=== PATIENT | female | born 1945 | race Caucasian/White ===

== ENCOUNTER → 2018-09-10 | Day surgery (SDC) | payer MEDICARE, OTHER ==
[2018-09-06 16:26] LABS: BASOPHILS % 0.7 % (0.0-1.0); EOSINOPHILS # (AUTO) 0.2 (0.0-0.4); EOSINOPHILS % 3.2 % (0.0-6.0); HEMOGLOBIN 10.9 g/dL (12.0-16.0); LYMPHOCYTES # (AUTO) 0.8 (1.0-3.2); LYMPHOCYTES % 14.9 % (18.0-39.1); MEAN CORPUSCULAR HEMOGLOBIN 27.7 pg (28-32); MEAN CORPUSCULAR HGB CONC 32.1 g/dL (31-35); MEAN CORPUSCULAR VOLUME 86.3 fL (81-99); MONOCYTES # (AUTO) 0.8 (0.2-0.8); MONOCYTES % 14.7 % (4.4-11.3); NEUTROPHILS # (AUTO) 3.7 (2.1-6.9); NEUTROPHILS % 66.3 % (38.7-80.0); PLATELET COUNT 216 x10e3/uL (140-360); RED BLOOD COUNT 3.94 x10e6/uL (3.6-5.1); RED CELL DISTRIBUTION WIDTH 14.9 % (11.7-14.4)
[2018-09-06 16:53] LABS: ANION GAP 12.2 mmol/L (8-16); BLOOD UREA NITROGEN 14 mg/dL (7-26); BUN/CREATININE RATIO 21 (6-25); CALCIUM 8.9 mg/dL (8.4-10.2); CARBON DIOXIDE 26 mmol/L (22-29); CHLORIDE 103 mmol/L (98-107); CREATININE, SERUM 0.66 mg/dL (0.57-1.11); EST GLOMERULAR FILTRATION RATE > 60 ML/MIN (60-); GLUCOSE 143 mg/dL (74-118); POTASSIUM 4.2 mmol/L (3.5-5.1); SODIUM 137 mmol/L (136-145)
--- NOTE | 2018-09-07 08:13 | Diagnostic Imaging Report ---
EXAMINATION: PA and lateral views of the chest. COMPARISON: Portable chest 08/12/2017 CLINICAL HISTORY: Preop exam DISCUSSION: Exam limited by patient rotation. Lines/tubes: None. Lungs: The lungs are well inflated and grossly clear. There is no evidence of consolidation or pulmonary edema. Pleura: There is no pleural effusion or pneumothorax. Eventration of the left hemidiaphragm. Heart and mediastinum: Cardiomediastinal silhouette is unremarkable. Pulmonary vasculature is normal. Bones and soft tissues: No acute bony abnormalities. Generalized osteopenia, with vertebroplasty changes in multiple mid and lower thoracic vertebral bodies IMPRESSION: No acute cardiopulmonary abnormalities. Signed by: Dr. Darren Gilliam M.D. on 09/07/2018 8:10 AM
[~2018-09-10] MED LIST: A-C CARBAMIDE PO; ABILIFY2 MG PO; ADVIL PM CAPLE1 EACH PO; ALENDRONATE SOD10 MG PO; BACLOFEN10 MG PO; BENZONATATE100 MG PO; BRINTELLIX PO; BUSPIRONE HCL10 MG PO; CARBAMAZEPINE200 M2 PO; CARBAMAZEPINE200 MG PO; CATAPLEX B PO; CITALOPRAM HBR20 MG PO; DEXAMETHASONE SOD PHOS INJ 4 MG/ML VIAL ONE; DEXILANT30 MG PO; DICYCLOMINE HCL10 MG PO; DOXYCYCLINE HY100 MG PO; EPHEDRINE SULFATE INJ 50 MG/10 ML SYR ONE; FENTANYL CITRATE/PF 100MCG/2 ML INJ ONE; FLUCONAZOLE100 MG PO; FUROSEMIDE40 MG PO; GABAPENTIN300 MG PO; HYDROCODONE-AP1 EAC1 PO; HYDROXYZINE HCL25 MG PO; IRON PO; KETOROLAC TROMETHAMINE 30 MG/ML VIAL ONE; LASIX40 MG PO; LIDOCAINE HCL 2% LOCAL INJ 5 ML SDV VIAL INJ ONE; LINEZOLID 600 MG/D5W 300ML 300 ML IV ONE; LORAZEPAM0.5 MG PO; LUNESTA3 MG PO; LYRICA50 MG PO; LYRICA75 MG PO; MAGNESIUM OXID400 MG PO; MAGNESIUM100 MG PO; MIDAZOLAM HCL 2 MG/2 ML VIAL ONE; MIDODRINE HCL5 MG PO; MULTI-VITAMIN1 EACH PO; NABUMETONE500 MG PO; NORCO 10-325 T1 EACH PO; ONDANSETRON HCL INJ 2 MG/ML VIAL ONE; POTASSIUM CHLO10 ME1 PO; POTASSIUM CHLO20 ME1 PO; PROPOFOL IV EMULSION 10 MG/ML 20 ML VIAL ONE; ROPINIROLE HCL1 MG PO; ROPINIROLE HCL2 MG PO; SEVOFLURANE INHAL SOLN 250 ML PEN BTL ONE; SIMVASTATIN40 MG PO; TEMAZEPAM15 MG PO; TERBINAFINE HC250 MG PO; TRAMADOL100 MG PO; ULTRAM 50MG50 MG PO; VIT B12 PO; Z.0.CYMBALTA60 MG PO; Z.0.SIMVASTATIN20 MG PO; Z.0.SINGULAIR10 MG PO; Z.1.CARBAMAZEPINE200 PO; [UNRECOGNIZED DRUG - OTHER]; [UNRECOGNIZED DRUG - OTHER]; [UNRECOGNIZED DRUG - OTHER] PO; [UNRECOGNIZED DRUG - OTHER] PO; [UNRECOGNIZED DRUG - OTHER] PO
--- OUTSIDE RECORDS SUMMARY | 2018-09-10 07:26 | XMS REPORT ---
Author Author Valerie Jarrell [facility] eClinicalWorks Address Unknown Phone Unavailable Care Team Providers Care Security Auditor Name Role Phone Valerie Jarrell CP Unavailable Allergies No Known Allergies Problems Problem Type Condition Code Onset Dates Condition Status Problem Osteoporosis, senile M81.0 Active Problem Gastritis and duodenitis K29.90 Active Problem Vitamin D deficiency E55.9 Active Medications No Known Medications Results No Known Results Summary Purpose eClinicalWorks Submission
--- OUTSIDE RECORDS SUMMARY | 2018-09-10 07:26 | XMS REPORT ---
Author Author Valerie Jarrell [facility] [place] eClinicalWorks Address Unknown Phone Unavailable Care Team Providers Care Aluminum Siding Applicator Name Role Phone Valerie Jarrell CP Unavailable Allergies No Known Allergies Problems Problem Type Condition Code Onset Dates Condition Status Problem Osteoporosis, senile M81.0 Active Problem Gastritis and duodenitis K29.90 Active Problem Vitamin D deficiency E55.9 Active Medications No Known Medications Results No Known Results Summary Purpose eClinicalWorks Submission
--- OUTSIDE RECORDS SUMMARY | 2018-09-10 07:26 | XMS REPORT ---
Author Author Valerie Jarrell Organization eClinicalWorks Address Unknown Phone Unavailable Care Team Providers Care Dermatological Surgeon Name Role Phone Valerie Jarrell CP Unavailable Allergies No Known Allergies Problems Problem Type Condition Code Onset Dates Condition Status Problem Gastritis and duodenitis K29.90 Active Problem Osteoporosis, senile M81.0 Active Medications Medication Code System Code Instructions Start Date End Date Status Dosage Ergocalciferol [facility] [id number] UNIT Orally q week Jul 17, 2018 Nov 14, 2018 Active 1 capsule Results No Known Results Summary Purpose eClinicalWorks Submission
--- OUTSIDE RECORDS SUMMARY | 2018-09-10 07:26 | XMS REPORT ---
Author Author Valerie Jarrell [facility] [place] eClinicalWorks Address Unknown Phone Unavailable Care Team Providers Care Optical Instrument Repairer Name Role Phone Valerie Jarrell CP Unavailable Allergies No Known Allergies Problems Problem Type Condition Code Onset Dates Condition Status Problem Osteoporosis, senile M81.0 Active Problem Gastritis and duodenitis K29.90 Active Problem Vitamin D deficiency E55.9 Active Medications No Known Medications Results No Known Results Summary Purpose eClinicalWorks Submission
--- OUTSIDE RECORDS SUMMARY | 2018-09-10 07:26 | XMS REPORT ---
Author Author Valerie Jarrell [facility] eClinicalWorks Address Unknown Phone Unavailable Care Team Providers Care Manager Family Name Role Phone Marisollaurel Valerie CP Unavailable Allergies, Adverse Reactions, Alerts Substance Reaction Event Type Cnephlosporin Info Not Available Non Drug Allergy Vancomycex Info Not Available Non Drug Allergy Clidymiacin Info Not Available Non Drug Allergy Aspirin Info Not Available Non Drug Allergy Penicillan Info Not Available Non Drug Allergy Problems Problem Type Condition Code Onset Dates Condition Status Problem Gastritis and duodenitis K29.90 Active Assessment Osteoporosis, senile M81.0 Active Problem Osteoporosis, senile M81.0 Active Assessment Pain in right hand M79.641 Active Assessment Gastritis and duodenitis K29.90 Active Assessment Pain of left hand M79.642 Active Medications Medication Code System Code Instructions Start Date End Date Status Dosage Womens Multivitamin [facility] 04651367994 - Orally Active not defined Gabapentin ND 31463878410 300 MG Orally Once a day Active 1 capsule before bedtime Imodium A-D [facility] 38787566121 2 MG Orally Four times a day Active 1 tablet as needed Potassium Chloride [facility] 68933227946 20 MEQ Orally Once a day Active 1 packet with food Magnesium [facility] 80726728645 300 MG Orally Once a day Active 1 capsule with a meal Sucralfate [facility] 50552384924 1 GM/10ML Orally Twice a day Active 10 ml at bedtime on an empty stomach before meals Benadryl ND 0 Active not defined HydrOXYzine HCl [facility] 09550483829 25 MG/ML Intramuscular every 6 hrs Active 2 ml as needed Ropinirole HCl ND 75209304883 2 MG Orally Once a day Active 1 tablet 1 to 3 hours before bedtime Carbamazepine ND 31915406028 100 MG Orally Twice a day Active 2 tablets Prolia [facility] 38376148050 60 MG/ML Subcutaneous once every 6 months Jul 03, 2018 Active as directed Bumetanide ND 08814329195 1 MG Orally Active not defined Doxycycline Hyclate [facility] 80207410911 100 MG Intravenous Active not defined Bell [address] [facility] 85808108074 1000 MG Orally Once a day Active 1 capsule Citalopram Hydrobromide [facility] 61875415633 20 MG Orally Once a day Active 1 tablet Vital Signs Date/Time: Jul 03, 2018 Height 57 in Blood Pressure Diastolic 72 mm Hg Blood Pressure Systolic 119 mm Hg Weight w/c lbs Results No Known Results Summary Purpose eClinicalWorks Submission
--- OUTSIDE RECORDS SUMMARY | 2018-09-10 07:26 | XMS REPORT ---
Author Author [facility] Address Unknown Phone Unavailable Care Team Providers Care Interface Designer Name Role Phone MERY JOVEL Unavailable Unavailable GABY QUINTANILLA Unavailable Unavailable Ernie STERLING Unavailable Unavailable Problems This patient has no known problems. Allergies, Adverse Reactions, Alerts This patient has no known allergies or adverse reactions. Medications This patient has no known medications. Results Test Description Test Time Test Comments Text Results Atomic Results Result Comments CHEST 2 VIEWS 2018-09-07 08:00:00 [place] [address] Patient Name: VENKATA DONOVAN MR #: [id number] : 1945 Age/Sex: 72/F Req #: [id number] Adm Physician: Ordered by: MERY JOVEL MD Report #: [id number] Location: OR Room/Bed: Procedure: [id number] DX/CHEST 2 VIEWS Exam Date: 09/06/18 Exam Time: 1650 REPORT STATUS: Signed EXAMINATION: PA and lateral views of the chest. COMP ARISON: Portable chest 08/12/2017 CLINICAL HISTORY: Preop exam DISCUSSION: Exam limited by patient rotation. Lines/tubes: None. Lungs: The lungs are well inflated and grossly clear. There is no evidence of consolidation or pulmonary edema. Pleura: There is no pleural effusion or pneumothorax. Eventration of the left hemidiaphragm. Heart and mediastinum: Cardiomediastinal silhouette is unremarkable. Pulmonary vasculature is normal. Bones and soft tissues: No acute bony abnormalities. Generalized osteopenia, with vertebroplasty changes in multip le mid and lower thoracic vertebral bodies IMPRESSION: No acute cardiopulmonary abnormalities. Signed by: Dr. Cali Gilliam M.D. on 09/07/2018 8:10 AM Dictated By: CALI GILLIAM MD 9 Transcribed By: ROGERIO on 09/07/18809 COPY TO: MERY JOVEL MD RIBS UNILAT W/CXR [place] [address] Patient Name: VENKATA DONOVAN MR #: [id number] : 1945 Age/Sex: 71/F Req #: [id number] Adm Physician: GABY QUINTANILLA MD Ordered by: GABY QUINTANILLA MD Report #: [id number] Location: MED/SURG2 Room/Bed: [facility] Procedure: [id number] DX/RIBS UNILAT W/CXR Exam Date: 08/13/17 Exam Time: 0615 REPORT STATUS: Signed RIBS UNILAT W/CXR HISTORY: Left-sided rib pain COMPARISON: None FINDINGS: Bones: Focal deformity at the lateral aspect of the left fifth rib without definite cortical disruption. Multilevel vertebroplasty noted along the mid thoracic spine. Anterior cervical spine fusion present. Osseous alignment is within normal limits. Joints: The joint spaces are well-maintained. Soft tissues: The soft tissues appear unremarkable. Right upper extremity PICC line is visualized with tip at the atriocaval junction The lungs are clear. IMPRESSION: Left lateral fifth rib deformity may represent subacute fracture in the appropriate clinical setting. Signed by: Dr. Armando Hoffman M.D. on 08/13/2017 6:57 AM Dictated By: ARMANDO SOUSA MD 6 Transcribed By: ROGERIO on 08/13/17656 COPY TO: GABY QUINTANILLA MD CHEST XRAY LINE PLACEMENT [place] [address] Patient Name: VENKATA DONOVAN MR #: [id number] : 1945 Age/Sex: 71/F Req #: [id number] Adm Physician: GABY QUINTANILLA MD Ordered by: ERICKA DIAZ MD Report #: [id number] Location: [place] [address] Room/Bed: [facility] Procedure: [id number] DX/CHEST XRAY LINE PLACEMENT Exam Date: 08/12/17 Exam Time: 1140 REPORT STATUS: Signed EXAMINATION: Chest, CHEST XRAY LINE PLACEMENT INDICATION: PICC placement COMPARISON: Portable chest 08/09/2017. FINDINGS: LINES: Right peripherally inserted central venous catheter with tip projecting over the expected region of the superior vena cava. Heart: Normal cardiac silhouette. Vascular: The pulmonary vasculature is within normal limits. Atherosclerotic calcifications of the aortic arch. Mediastinum: No mediastinal, hilar, or axillary mass or lymphadenopathy. Lungs: No parenchymal mass. No focal consolidation. Pleura: No pleural effusion. No pneumothorax. Bones: No acute osseous abnormality. Degenerative changes of the thoracic spine. Anterior cervical spine fusion hardware. Multilevel kyphoplasty changes. So ft tissues: Normal. Impression: No acute radiographic abnormality. Signed by: Dr. Lea Cabrera M.D. on 08/12/2017 12:03 PM Dictated By: LEA CABRERA MD 1203 Transcribed By: ROGERIO on 08/12/17 1203 COPY TO: ERICKA DIAZ MD CHEST SINGLE (NOT PORTABLE) [place] [address] Patient Name: VENKATA DONOVAN MR #: [id number] : 1945 Age/Sex: 71/F Req #: [id number] Adm Physician: Ordered by: TUYET RAI MD Report #: [id number] Location: ER Room/Bed: Procedure: [id number] DX/CHEST SINGLE (NOT PORTABLE) Exam Date: 08/09/17 Exam Time: 1615 REPORT STATUS: Signed PROCEDURE: A single AP view of the chest. COMPARISON: [facility], DX, CHEST XRAY LINE PLACEMENT, 05/02/2017, 12:13. INDICATIONS: CELLULITIS FINDINGS: Lines/tubes: None. Lungs: The lungs are well inflated and clear. There is no evidence of pneumonia or pulmonary edema. Pleura: There is no pleural effusion or pneumothorax. Heart and mediastinum: The heart and the mediastinum are unremarkable. Bones: No acute bony abnormality. Multiple vertebroplasty changes in the thoracic spine. Stable partly visualized lower thoracic fusion hardware. Degenerative changes in the left glenohumeral joint. IMPRESSION: 1. No acute cardiopulmonary abnormalities. Cali Gilliam M.D. Dictated by: Cali Gilliam M.D. on 08/09/2017 at 17:14 Electronically approved by: Cali Gilliam M.D. on 08/09/2017 at 17:14 Dictated By: CALI GILLIAM MD 13 Transcribed By: ROSS on 08/09/171713 COPY TO: TUYET RAI MD CTA ABD/PEL/RUN OFF [facility] [address] [place] [address] Patient Name: VENKATA DONOVAN MR #: [id number] : 1945 Age/Sex: 71/F Req #: [id number] Adm Physician: Ordered by: SVETLANA STERLING MD Report #: [id number] Location: CT Room/Bed: Procedure: [id number] CT/CTA ABD/PEL/RUN OFF Exam Date: 06/28/17 Exam Time: 1944 REPORT STATUS: Signed PROCEDURE: CTA ABD/PEL/BILATERAL LOWER EXT RUNOFF COMPARISON: None. INDICATIONS: ABNORMAL DOPPLER TECHNIQUE: Multi- detector CT technology with Dose Reduction was employed. Images were obtained after the administration of 100 cc of Isovue-370 intravenously. For optimization of anatomic evaluation, multiplanar and volume rendering reconstructions were performed. Advanced 3-D off-line postprocessing were performed on a dedicated stand-alone workstation under the direct supervision of the interpreting physician. DLP: 995.16 mGy-cm FINDINGS: Aortic Measurements at the level of the: Diaphragmatic hiatus: 2.3 cm Celiac axis: 2.1 cm Superior Mesenteric Artery: 1.7 cm Renal Arteries: 1.4 cm Above the iliac bifurcation: 1.2 cm There is a moderate amount of calcified plaque throughout the abdominal aorta. There is no aortic aneurysm or dissection. The celiac, superior mesenteric, inferior mesenteric and renal arteries are patent with scattered atherosclerotic disease, without significant narrowing. Calcification at the ostia of the celiac and bilateral renal arteries. Pelvic vessels: Right common iliac artery: 1.0 cm Left common iliac artery: 1.0 cm The bilateral common, external and internal iliac arteries are patent with mild atherosclerotic disease. No significant areas of narrowing. Right lower extremity: Mild athe rosclerotic calcification. No focal stenosis. The superficial femoral artery, popliteal artery and trifurcation vessels are patent. There are 3 vessels extending to the foot. Dorsalis pedis and posterior tibial arteries are present the foot. Left lower extremity: Occluded left SFA with profunda collaterals. Patient is status post edhbw-ici-gcqe amputation on the left. Abdominal and Pelvic soft-tissues and organs: Lung bases: Normal Liver: No masses Biliary: Status post cholecystectomy. No biliary dilatation. Spleen: Unremarkable Pancreas: Unremarkable Adrenal Glands: No nodules or masses Kidneys: Within normal limits GI: No bowel wall thickening. Peritoneum/Retroperitoneum: No free fluid or adenopathy. Reproductive organs: Atrophic appearing uterus. Musculoskeletal: Vertebroplasty cement and T9. Compression abnormalities of L4 and L2. Multilevel degenerative disc space narrowing. Small right knee joint effusion. Chronic fracture fracture deformity of the left femoral neck. Fractures are new compared to the prior CTA dated 2013. Soft tissues: Multiple calcified injection granulomas. Small fat-containing umbilical hernia. CONCLUSION: 1. No significant stenosis in the right lower extremity; status post left aftey-frt-nbkp amputation. 2. There is a three-vessel calf runoff with dorsalis pedis and posterior tibial patent at the foot. 3. Compression fractures of the lumbar spine.. Nahed Orta D.O. Dictated by: Nahed Orta D.O. on 06/29/2017 at 10:42 Electronically approved by: Nahed Orta D.O. on 06/29/2017 at 12:14 Dictated By: NAHED ORTA DO 1214 Transcribed By: ROSS on 06/29/17 1214 COPY TO: SVETLANA STERLING MD
--- OUTSIDE RECORDS SUMMARY | 2018-09-10 07:26 | XMS REPORT | Clinical Summary ---
Author Author [facility] Address Unknown Phone Unavailable Care Team Providers Care Summer Law Clerk Name Role Phone Asked, No Pcp PCP Unavailable Allergies Active Allergy Reactions Severity Noted Date Comments Aspirin Shortness Of Breath, Rash High 02/07/2017 Clindamycin Rash Low 02/07/2017 Penicillins Rash Low 02/07/2017 Sulfa (Sulfonamide Rash Low 02/07/2017 Antibiotics) Vancomycin Rash Low 02/07/2017 Current Medications Prescription Sig. Disp. Refills Start End Date Status Date traMADol (ULTRAM) 50 mg Take 50 mg by mouth every Active tablet 6 (six) hours as needed. baclofen (LIORESAL) 10 MG Take 10 mg by mouth every Active tablet evening. furosemide (LASIX) 40 mg Take 80 mg by mouth every Active tablet morning. busPIRone (BUSPAR) 10 MG Take 10 mg by mouth 2 Active tablet (two) times a day. LORAZepam (ATIVAN) 0.5 MG Take 0.5 mg by mouth Active tablet every 6 (six) hours as needed for anxiety. rOPINIRole (REQUIP) 2 MG Take 4 mg by mouth 2 Active tablet (two) times a day. carBAMazepine (TEGretol) Take 200 mg by mouth 2 Active 200 mg tablet (two) times a day. HYDROcodone-acetaminophen Take 1 tablet by mouth Active (NORCO) 10-325 mg per nightly. tablet HYDROcodone-acetaminophen Take 1 tablet by mouth Active (NORCO) 10-325 mg per daily as needed for tablet moderate pain. pantoprazole (PROTONIX) Take 40 mg by mouth Active 40 MG EC tablet nightly. fluticasone-salmeterol Inhale 2 puffs as needed Active (ADVAIR) 500-50 mcg/dose (shortness of breath). DISKUS cholecalciferol, vitamin Take 5,000 Units by mouth Active D3, (VITAMIN D3) 5,000 daily. unit tablet gabapentin (NEURONTIN) Take 600 mg by mouth Active 600 mg tablet daily. magnesium oxide 84.5 mg Take 2 capsules by mouth Active (140 mg) capsule daily. UNABLE TO FIND Take 1 tablet by mouth Active daily. Procera AVH coenzyme Q10 100 mg Take 100 mg by mouth Active capsule daily. melatonin 5 mg tablet Take 5 mg by mouth Active nightly as needed (insomnia). ASCORBATE CALCIUM Take 1 tablet by mouth Active (VITAMIN C ORAL) daily. diphenhydrAMINE Take 12.5 mg by mouth Active (BENADRYL) 12.5 mg/5 mL nightly as needed for liquid sleep. Active Problems Problem Noted Date Closed fracture of base of neck of femur (HCC) 02/08/2017 Closed fracture of neck of left femur (HCC) 02/07/2017 Immunizations Name Dates Previously Given Next Due Tdap 02/07/2017 Social History Tobacco Use Types Packs/Day Years Used Date Former Smoker Quit: 2014 Alcohol Use Drinks/Week oz/Week Comments No Sex Assigned at Date Recorded Not on file Last Filed Vital Signs Not on file Plan of Treatment Health Maintenance Due Date Last Done Comments BREAST CANCER SCREENING 1997 COLON CANCER SCREENING 1997 SHINGRIX VACCINE (#1) 1997 ZOSTER VACCINE 2007 PNEUMOCOCCAL 2012 POLYSACCHARIDE VACCINE AGE 65 AND OVER PNEUMOCOCCAL-13 2012 INFLUENZA VACCINE 06/12/2018 Results Not on fileafter 09/09/2017 Insurance Payer Benefit Subscriber ID Type Phone Address Plan / Group MEDICARE MEDICARE xxxxxxxxxx Medicare [place], [place] PART A AND B COMMERCIAL MISC MISC xxxxxx-xx Commercial COMMERCIAL
--- OUTSIDE RECORDS SUMMARY | 2018-09-10 07:26 | XMS REPORT ---
Author Author Valerie Jarrell [facility] eClinicalWorks Address Unknown Phone Unavailable Care Team Providers Care Business Area Manager Name Role Phone Marisollaurel Valerie CP Unavailable Allergies, Adverse Reactions, Alerts Substance Reaction Event Type Cnephlosporin Info Not Available Non Drug Allergy Vancomycex Info Not Available Non Drug Allergy Clidymiacin Info Not Available Non Drug Allergy Aspirin Info Not Available Non Drug Allergy Penicillan Info Not Available Non Drug Allergy Problems Problem Type Condition Code Onset Dates Condition Status Assessment Vitamin D deficiency E55.9 Active Problem Osteoporosis, senile M81.0 Active Problem Gastritis and duodenitis K29.90 Active Problem Vitamin D deficiency E55.9 Active Assessment Pain of left hand M79.642 Active Assessment Pain in right hand M79.641 Active Assessment Osteoporosis, senile M81.0 Active Assessment Gastritis and duodenitis K29.90 Active Medications Medication Code System Code Instructions Start Date End Date Status Dosage Carbamazepine [facility] 25209277975 100 MG Orally Twice a day Active 2 tablets Ropinirole HCl [facility] 10864804848 2 MG Orally Once a day Active 1 tablet 1 to 3 hours before bedtime [place] 3 [facility] 93615305189 1000 MG Orally Once a day Active 1 capsule HydrOXYzine HCl [facility] 56136969773 25 MG/ML Intramuscular every 6 hrs Active 2 ml as needed Prolia [facility] 05615074250 60 MG/ML Subcutaneous once every 6 months Active as directed Sucralfate [facility] 73709442623 1 GM/10ML Orally Twice a day Active 10 ml at bedtime on an empty stomach before meals Potassium Chloride [facility] 35000760443 20 MEQ Orally Once a day Active 1 packet with food Ergocalciferol [facility] 66016379929 16186 UNIT Orally q week Jul 17, 2018 Nov 14, 2018 Active 1 capsule Doxycycline Hyclate [facility] 61433479285 100 MG Intravenous Active not defined Bumetanide ND 54049121955 1 MG Orally Active not defined Imodium A-D ND 56809704711 2 MG Orally Four times a day Active 1 tablet as needed Ergocalciferol [facility] 06877048680 71052 UNIT Orally once weekly Jul 30, 2018 Nov 27, 2018 Active 1 capsule Etodolac [facility] 78055387852 400 MG Orally Twice a day Jul 30, 2018 Nov 27, 2018 Active 1 tab(s) with food as needed Magnesium [facility] 62594369720 300 MG Orally Once a day Active 1 capsule with a meal Womens Multivitamin [facility] 32985417938 - Orally Active not defined Citalopram Hydrobromide [facility] 12971815146 20 MG Orally Once a day Active 1 tablet Gabapentin [facility] 53851586387 300 MG Orally Once a day Active 1 capsule before bedtime Benadryl [facility] 0 Active not defined Vital Signs Date/Time: Jul 30, 2018 Height 57 in Blood Pressure Diastolic 51 mm Hg Blood Pressure Systolic 103 mm Hg Weight 135 lbs Results No Known Results Summary Purpose eClinicalWorks Submission
--- OUTSIDE RECORDS SUMMARY | 2018-09-10 07:26 | XMS REPORT ---
Author Author Valerie Jarrell [facility] eClinicalWorks Address Unknown Phone Unavailable Care Team Providers Care Html Developer Name Role Phone Valerie Jarrell CP Unavailable Allergies No Known Allergies Problems Problem Type Condition Code Onset Dates Condition Status Problem Osteoporosis, senile M81.0 Active Problem Gastritis and duodenitis K29.90 Active Problem Vitamin D deficiency E55.9 Active Medications No Known Medications Results No Known Results Summary Purpose eClinicalWorks Submission
--- OUTSIDE RECORDS SUMMARY | 2018-09-10 07:26 | XMS REPORT ---
Author Author Valerie Jarrell Organization eClinicalWorks Address Unknown Phone Unavailable Care Team Providers Care Concrete Conveyor Operator Name Role Phone Valerie Jarrell CP Unavailable Allergies No Known Allergies Problems Problem Type Condition Code Onset Dates Condition Status Problem Osteoporosis, senile M81.0 Active Problem Gastritis and duodenitis K29.90 Active Problem Vitamin D deficiency E55.9 Active Assessment Pain of left hand M79.642 Active Medications Medication Code System Code Instructions Start Date End Date Status Dosage Etodolac [facility] 22631481779 400 MG Orally Twice a day Jul 30, 2018 Nov 27, 2018 Inactive 1 tab(s) with food as needed Naproxen NDC 47462332752 500 MG Orally every 12 hrs Aug 06, 2018 Nov 04, 2018 Active 1 tab(s) with food as needed Results No Known Results Summary Purpose eClinicalWorks Submission
--- OUTSIDE RECORDS SUMMARY | 2018-09-10 07:26 | XMS REPORT | Continuity of Care Document ---
Author Author [facility] Interface Address Unknown Phone Unavailable Problems Problem Status Onset Date Classification Date Reported Comments Source Osteoporosis, senile Active Problem 08/28/2018 Valerie Najam Gastritis and duodenitis Active Problem 08/28/2018 Valerie Najam Vitamin D deficiency Active Problem 08/28/2018 Valerie Najam Pain of left hand Active Diagnosis 08/07/2018 Valerie Najam Pain in right hand Active Diagnosis 07/31/2018 Valerie Najam Medications Medication Details Route Status Patient Instructions Ordering Provider Order Date Source Naproxen 1 tab(s) with food as needed Orally Active 500 MG Orally every 12 hrs Najam 08/06/2018 Valerie Najam Etodolac 1 tab(s) with food as needed Orally Active 400 MG Orally Twice a day Najam 07/30/2018 Valerie Najam Ergocalciferol 1 capsule Orally Active 58712 UNIT Orally once weekly Najam 07/30/2018 Valerie Najam Ergocalciferol 1 capsule Orally Active 89706 UNIT Orally q week Naja 07/17/2018 Valerie Najam Prolia as directed Subcutaneous Active 60 MG/ML Subcutaneous once every 6 months Naja 07/03/2018 Valerie Najam Womens Multivitamin not defined Orally Active - Orally Najam Valerie Najam Gabapentin 1 capsule before bedtime Orally Active 300 MG Orally Once a day Najam Valerie Najam Imodium A-D 1 tablet as needed Orally Active 2 MG Orally Four times a day Najam Valerie Najam Potassium Chloride 1 packet with food Orally Active 20 MEQ Orally Once a day Najam Valerie Najam Magnesium 1 capsule with a meal Orally Active 300 MG Orally Once a day Najam Valerie Najam Sucralfate 10 ml at bedtime on an empty stomach before meals Orally Active 1 GM/10ML Orally Twice a day Najam Valerie Najam Benadryl not defined NA Active Najam Valerie Najam HydrOXYzine HCl 2 ml as needed Intramuscular Active 25 MG/ML Intramuscular every 6 hrs Wesly Jarrell Ropinirole HCl 1 tablet 1 to 3 hours before bedtime Orally Active 2 MG Orally Once a day Wesly Jarrell Carbamazepine 2 tablets Orally Active 100 MG Orally Twice a day Naluisa Jarrell Bumetanide not defined Orally Active 1 MG Orally Wesly Jarrell Doxycycline Hyclate not defined Intravenous Active 100 MG Intravenous Naluisa Jarrell Fleming 3 1 capsule Orally Active 1000 MG Orally Once a day Naluisa Padilla Naluisa Citalopram Hydrobromide 1 tablet Orally Active 20 MG Orally Once a day Wesly Padilla Naluisa Prolia as directed Subcutaneous Active 60 MG/ML Subcutaneous once every 6 months Wesly Jarrell Allergies, Adverse Reactions, Alerts Substance Category Reaction Severity Reaction type Status Date Reported Comments Source Cnephlosporin Adverse Reaction Info Not Available Adverse Reaction Active 07/30/2018 Valerie Naluisa Vancomycex Adverse Reaction Info Not Available Adverse Reaction Active 07/30/2018 Valerie Naluisa Clidymiacin Adverse Reaction Info Not Available Adverse Reaction Active 07/30/2018 Valerie Nafernm Aspirin Adverse Reaction Info Not Available Adverse Reaction Active 07/30/2018 Valerie Naluisa Penicillan Adverse Reaction Info Not Available Adverse Reaction Active 07/30/2018 Valerie Najam Immunizations Immunization Date Given Site Status Last Updated Comments Source Results Order Name Results Value Reference Range Date Interpretation Comments Source Vital Signs Vital Sign Value Date Comments Source Height 57 07/30/2018 Valerie Najam Diastolic (mm Hg) 51 07/30/2018 Valerie Najam Systolic (mm Hg) 103 07/30/2018 Valerie Najam Weight 135 07/30/2018 Valerie Najam Height 57 07/03/2018 Valerie Najam Diastolic (mm Hg) 72 07/03/2018 Valerie Najam Systolic (mm Hg) 119 07/03/2018 Valerie Najam Encounters Location Location Details Encounter Type Encounter Number Reason For Visit Attending Provider ADM Date DC Date Status Source Procedures Procedure Code Date Perfomer Comments Source
[2018-09-10 09:45] VITALS: BP 98/41
--- NOTE | 2018-09-10 09:52 | Operative Report ---
DATE OF PROCEDURE: September 10, 2018 MARKETING CLERK: Shaheen Montiel PA-C The patient was brought to the operating room for induction of anesthesia. Throughout this case, my PA's assistance was necessary for retraction of soft tissue and positioning of the extremity. This allows for efficient and technically successful execution of the operation and is considered medically necessary. PREOPERATIVE DIAGNOSIS: Left carpal tunnel syndrome. POSTOPERATIVE DIAGNOSIS: Left carpal tunnel syndrome. PROCEDURE: Left endoscopic carpal tunnel release. INDICATIONS: The patient is a 72-year-old lady who has clinic signs and symptoms consistent with severe left carpal tunnel syndrome. She has failed conservative management and would like to proceed with surgical release. The risks and benefits of an endoscopic versus open carpal tunnel release have been explained. She states she understands and wishes to proceed. PROCEDURE: The patient was brought to the operating room. She was placed under general anesthetic. Prophylactic antibiotics were given in the holding area. The upper extremity was prepped and draped in a sterile manner. A well-padded tourniquet was placed on the upper arm and inflated to 250 mmHg. An operative time out was performed. A 1-cm incision was made over the flexion crease of the wrist. The palmaris longus was retracted to the radial side of the wound. The flexor retinaculum was elevated and incised with a pair of sharp tenotomy scissors. An elevator was used to tease the tenosynovium off the undersurface of the transverse carpal ligament. Dilators were placed, and the hook of the hamate was palpated. The MicroAire endoscope was then placed into the carpal tunnel. The undersurface of the ligament was cleanly visualized without evidence of soft tissue interposition. The knife was deployed, and the ligament was cut from distal to proximal. Full-thickness cut was noted. The proximal retinaculum was then incised under direct visualization using a pair of blunt Metzenbaum scissors. The wound was irrigated and closed with 2 interrupted 4-0 nylon stitches. A sterile bandage was applied, and the patient was extubated. The patient was transferred to the recovery room in stable condition. Blood loss was less than 5 mL, and at the end of the procedure needle and sponge counts were correct. Job#: [id number] MUKESH
== END | disposition home or self-care (01) ==
LOC: OR 07:06
PROVIDERS: ATTEND Specialist
DX: G56.02 Carpal tunnel syndrome, left upper limb (principal); G25.81 Restless legs syndrome; G47.33 Obstructive sleep apnea (adult) (pediatric); E78.5 Hyperlipidemia, unspecified; I73.9 Peripheral vascular disease, unspecified; Z88.6 Allergy status to analgesic agent; Z88.1 Allergy status to other antibiotic agents; Z88.0 Allergy status to penicillin; Z88.2 Allergy status to sulfonamides; Z87.440 Personal history of urinary (tract) infections; Z01.810 Encounter for preprocedural cardiovascular examination; Z01.812 Encounter for preprocedural laboratory examination; Z01.811 Encounter for preprocedural respiratory examination
CPT/HCPCS: 29848; 36415; 71046; 80048; 85025; 93005; J1100; J1885; J2001; J2020; J2250; J2405; J2704

== ENCOUNTER → 2019-04-22 | Day surgery (SDC) | payer MEDICARE, OTHER ==
[2019-04-21 17:03] LABS: BASOPHILS % 0.6 % (0.0-1.0); EOSINOPHILS # (AUTO) 0.2 (0.0-0.4); EOSINOPHILS % 2.7 % (0.0-6.0); HEMATOCRIT 34.3 % (34.2-44.1); HEMOGLOBIN 11.2 g/dL (12.0-16.0); LYMPHOCYTES # (AUTO) 1.3 (1.0-3.2); LYMPHOCYTES % 20.3 % (18.0-39.1); MEAN CORPUSCULAR HEMOGLOBIN 29.7 pg (28-32); MEAN CORPUSCULAR HGB CONC 32.7 g/dL (31-35); MONOCYTES # (AUTO) 0.6 (0.2-0.8); NEUTROPHILS # (AUTO) 4.2 (2.1-6.9); NEUTROPHILS % 67.2 % (38.7-80.0); PLATELET COUNT 216 x10e3/uL (140-360); RED BLOOD COUNT 3.77 x10e6/uL (3.6-5.1); RED CELL DISTRIBUTION WIDTH 13.3 % (11.7-14.4)
[2019-04-21 17:22] LABS: ANION GAP 11.5 mmol/L (8-16); BLOOD UREA NITROGEN 15 mg/dL (7-26); BUN/CREATININE RATIO 20 (6-25); CALCIUM 9.6 mg/dL (8.4-10.2); CARBON DIOXIDE 30 mmol/L (22-29); CHLORIDE 101 mmol/L (98-107); CREATININE, SERUM 0.75 mg/dL (0.57-1.11); EST GLOMERULAR FILTRATION RATE > 60 ML/MIN (60-); GLUCOSE 83 mg/dL (74-118); POTASSIUM 4.5 mmol/L (3.5-5.1); SODIUM 138 mmol/L (136-145)
[~2019-04-22] MED LIST changes: +CLOTRIMAZOLE-BE15 GM TOP; +EFFEXOR XR 3737.5 MG PO; -EPHEDRINE SULFATE INJ 50 MG/10 ML SYR ONE; +ETODOLAC400 M1 PO; -FENTANYL CITRATE/PF 100MCG/2 ML INJ ONE; +LEVOFLOXACIN 500MG/D5W 100ML 100 ML IV ONE; -LINEZOLID 600 MG/D5W 300ML 300 ML IV ONE; -MIDAZOLAM HCL 2 MG/2 ML VIAL ONE; +NYSTOP60 GM TOP; -ONDANSETRON HCL INJ 2 MG/ML VIAL ONE; +ONDANSETRON HCL INJ 2MG/ML 2ML 2 MG/ML VIAL ONE
--- OUTSIDE RECORDS SUMMARY | 2019-04-22 07:32 | XMS REPORT | Continuity of Care Document ---
Author Author [facility] Interface Address Unknown Phone Unavailable Problems Problem Status Onset Date Classification Date Reported Comments Source Osteoporosis, senile Active Problem 03/19/2019 Valerie Najam Gastritis and duodenitis Active Problem 03/19/2019 Valerie Najam Vitamin D deficiency Active Diagnosis 03/19/2019 Valerie Najam Pain of left hand Active Diagnosis 03/19/2019 Valerie Najam Pain in right hand Active Diagnosis 03/19/2019 Valerie Najam Medications Medication Details Route Status Patient Instructions Ordering Provider Order Date Source Etodolac 1 tab(s) with food as needed Orally Active 400 MG Orally Twice a day Naja 02/27/2019 Valerie Najam Ergocalciferol 1 capsule Orally Active 28742 UNIT Orally once weekly Naja 02/27/2019 Valerie Najam Prolia as directed Subcutaneous Active 60 MG/ML Subcutaneous once every 6 months Naja 02/25/2019 Valerie Najam Naproxen 1 tab(s) with food as needed Orally Active 500 MG Orally every 12 hrs Naja 08/06/2018 Valerie Najam Ergocalciferol 1 capsule Orally Active 59804 UNIT Orally once weekly Naja 07/30/2018 Valerie Najam Etodolac 1 tab(s) with food as needed Orally Active 400 MG Orally Twice a day Naja 07/30/2018 Valerie Najam Ergocalciferol 1 capsule Orally Active 84152 UNIT Orally q week Naja 07/17/2018 Valerie Najam Prolia as directed Subcutaneous Active 60 MG/ML Subcutaneous once every 6 months Naja 07/03/2018 Valerie Najam Carbamazepine 2 tablets Orally Active 100 MG Orally Twice a day Najam Valerie Najam Ropinirole HCl 1 tablet 1 to 3 hours before bedtime Orally Active 2 MG Orally Once a day Najam Valerie Najam [place] 3 1 capsule Orally Active 1000 MG Orally Once a day Najam Valerie Najam HydrOXYzine HCl 2 ml as needed Intramuscular Active 25 MG/ML Intramuscular every 6 hrs Najam Valerie Najam Prolia as directed Subcutaneous Active 60 MG/ML Subcutaneous once every 6 months Najam Valerie Najam Sucralfate 10 ml at bedtime on an empty stomach before meals Orally Active 1 GM/10ML Orally Twice a day Najam Valerie Najam Potassium Chloride 1 packet with food Orally Active 20 MEQ Orally Once a day Najam Valerie Najam Doxycycline Hyclate not defined Intravenous Active 100 MG Intravenous Najam Valerie Najam Bumetanide not defined Orally Active 1 MG Orally Najam Valerie Najam Imodium A-D 1 tablet as needed Orally Active 2 MG Orally Four times a day Najam Valerie Najam Magnesium 1 capsule with a meal Orally Active 300 MG Orally Once a day Najam Valerie Najam Womens Multivitamin not defined Orally Active - Orally Najam Valerie Najam Citalopram Hydrobromide 1 tablet Orally Active 20 MG Orally Once a day Najam Valerie Najam Gabapentin 1 capsule before bedtime Orally Active 300 MG Orally Once a day Najam Valerie Najam Benadryl not defined NA Active Najam Valerie Najam Furosemide 1 tablet Orally Active 40 MG Orally Once a day Najam Valerie Najam Gabapentin 1 cap(s) Orally Active 400 MG Orally Three times a day Najam Valerie Najam Etodolac 1 tab(s) with food as needed Orally Active 400 MG Orally Twice a day Najam Valerie Najam Ergocalciferol 1 capsule Orally Active 54493 UNIT Orally once weekly Najam Valerie Najam Triamcinolone Acetonide 1 application to affected area Externally Active 0.1 % Externally Twice a day Najam Valerie Najam Allergies, Adverse Reactions, Alerts Substance Category Reaction Severity Reaction type Status Date Reported Comments Source Cnephlosporin Adverse Reaction Info Not Available Adverse Reaction Active 02/25/2019 Valerie Najam Vancomycex Adverse Reaction Info Not Available Adverse Reaction Active 02/25/2019 Valerie Najam Clidymiacin Adverse Reaction Info Not Available Adverse Reaction Active 02/25/2019 Valerie Najam Aspirin Adverse Reaction Info Not Available Adverse Reaction Active 02/25/2019 Valerie Najam Penicillan Adverse Reaction Info Not Available Adverse Reaction Active 02/25/2019 Valerie Najam sulfa Adverse Reaction Info Not Available Adverse Reaction Active 02/25/2019 Valerie Najam Immunizations Immunization Date Given Site Status Last Updated Comments Source Results Order Name Results Value Reference Range Date Interpretation Comments Source Vital Signs Vital Sign Value Date Comments Source Height 57 02/25/2019 Valerie Najam Diastolic (mm Hg) 60 02/25/2019 Valerie Najam Systolic (mm Hg) 126 02/25/2019 Valerie Najam Weight 163.6 02/25/2019 Valerie Najam Height 57 10/30/2018 Valerie Najam Diastolic (mm Hg) 54 10/30/2018 Valerie Najam Systolic (mm Hg) 113 10/30/2018 Valerie Najam Weight 151.8 10/30/2018 Valerie Najam Height 57 07/30/2018 Valerie Najam Diastolic (mm [...]
--- OUTSIDE RECORDS SUMMARY | 2019-04-22 07:32 | XMS REPORT ---
Author Author [facility] Address Unknown Phone Unavailable Care Team Providers Care Observation Assistant Name Role Phone MERY JOVEL Unavailable Unavailable GABY QUINTANILLA Unavailable Unavailable Ernie STERLING Unavailable Unavailable Problems This patient has no known problems. Allergies, Adverse Reactions, Alerts This patient has no known allergies or adverse reactions. Medications This patient has no known medications. Results Test Description Test Time Test Comments Text Results Atomic Results Result Comments CHEST 2 VIEWS 2018-09-07 08:00:[address] [address] Patient Name: VENKATA DONOVAN MR #: [id number] : 1945 Age/Sex: 72/F Req #: [id number] Adm Physician: Ordered by: MERY JOVEL MD Report #: [id number] Location: OR Room/Bed: Procedure: [id number] DX/CHEST 2 VIEWS Exam Date: 09/06/18 Exam [...] TO: MERY JOVEL MD RIBS UNILAT W/CXR [place] [address] Patient Name: VENKATA DONOVAN MR #: [id number] : 1945 Age/Sex: 71/F Req #: [id number] Adm Physician: GABY QUINTANILLA MD Ordered by: GABY QUINTANILLA MD Report #: [id number] Location: MED/SURG2 Room/Bed: [facility] Procedure: [id number] DX/RIBS UNILAT W/CXR Exam Date: 08/13/17 Exam [...] on 08/13/2017 6:57 AM Dictated By: ARMANDO SUOSA MD 6 Transcribed By: ROGERIO on 08/13/17656 COPY TO: GABY QUINTANILLA MD CHEST XRAY LINE PLACEMENT [place] [address] Patient Name: VENKATA DONOVAN MR #: [id number] : 1945 Age/Sex: 71/F Req #: [id number] Adm Physician: GABY QUINTANILLA MD Ordered by: ERICKA DIAZ MD Report #: [id number] Location: [place] [address] Room/Bed: [facility] Procedure: [id number] DX/CHEST XRAY LINE PLACEMENT Exam Date: 08/12/17 [...] ERICKA DIAZ MD CHEST SINGLE (NOT PORTABLE) [place] [address] Patient Name: VENKATA DONOVAN MR #: [id number] : 1945 Age/Sex: 71/F Req #: [id number] Adm Physician: Ordered by: TUYET RAI MD Report #: [id number] Location: ER Room/Bed: Procedure: [id number] DX/CHEST SINGLE (NOT PORTABLE) Exam Date: 08/09/17 Exam Time: 1615 REPORT STATUS: Signed PROCEDURE: A single AP view of the chest. COMPARISON: [facility], DX, CHEST XRAY LINE PLACEMENT, 05/02/2017, [...] TO: TUYET RAI MD CTA ABD/PEL/RUN OFF [facility] [address] [place] [address] Patient Name: VENKATA DONOVAN MR #: [id number] : 1945 Age/Sex: 71/F Req #: [id number] Adm Physician: Ordered by: SVETLANA STERLING MD Report #: [id number] Location: CT Room/Bed: Procedure: [id number] CT/CTA ABD/PEL/RUN OFF Exam Date: 06/28/17 Exam [...] with profunda collaterals. 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 Abdominal and Pelvic [...] the right lower extremity; status post left [id number] amputation. 2. There is a three-vessel calf [...]
--- OUTSIDE RECORDS SUMMARY | 2019-04-22 07:32 | XMS REPORT ---
Author Author Valerie Jarrell Organization [employer] Address Unknown Phone Unavailable Care Team Providers Care Field Test Engineer Name Role Phone Maddyluisa Valerie CP Unavailable Allergies, Adverse Reactions, Alerts Substance Reaction Event Type sulfa Info Not Available Non Drug Allergy Cnephlosporin Info Not Available Non Drug Allergy Vancomycex Info Not Available Non Drug Allergy Clidymiacin Info Not Available Non Drug Allergy Aspirin Info Not Available Non Drug Allergy Penicillan Info Not Available Non Drug Allergy Problems Problem Type Condition Code Onset Dates Condition Status Assessment Pain in right hand M79.641 Active Assessment Vitamin D deficiency E55.9 Active Problem Osteoporosis, senile M81.0 Active Problem Gastritis and duodenitis K29.90 Active Problem Vitamin D deficiency E55.9 Active Assessment Gastritis and duodenitis K29.90 Active Assessment Pain of left hand M79.642 Active Assessment Osteoporosis, senile M81.0 Active Medications Medication Code System Code Instructions Start Date End Date Status Dosage Ergocalciferol [facility] 38281763749 17292 UNIT Orally once weekly February 27, 2019 Active 1 capsule Furosemide ND 69356638795 40 MG Orally Once a day Active 1 tablet Imodium A-D ND 07724417196 2 MG Orally Four times a day Active 1 tablet as needed Prolia [facility] 46723952564 60 MG/ML Subcutaneous once every 6 months February 25, 2019 Inactive as directed Etodolac [facility] 24836615424 400 MG Orally Twice a day Active 1 tab(s) with food as needed Ergocalciferol [facility] 56560365019 85466 UNIT Orally once weekly Active 1 capsule Citalopram Hydrobromide ND 83737187558 20 MG Orally Once a day Active 1 tablet Potassium Chloride ND 99860191905 20 MEQ Orally Once a day Active 1 packet with food Benadryl NDC 0 Active not defined Magnesium ND 48471782596 300 MG Orally Once a day Active 1 capsule with a meal HydrOXYzine HCl ND 50666130479 25 MG/ML Intramuscular every 6 hrs Active 2 ml as needed Womens Multivitamin [facility] 30044946459 - Orally Active not defined Ropinirole HCl [facility] 21041874242 2 MG Orally Once a day Active 1 tablet 1 to 3 hours before bedtime Gabapentin [facility] 08646490692 400 MG Orally Three times a day Active 1 cap(s) Carbamazepine [facility] 33117026658 100 MG Orally Twice a day Active 2 tablets Triamcinolone Acetonide [facility] 79149392804 0.1 % Externally Twice a day Active 1 application to affected area Vital Signs Date/Time: February 25, 2019 Height 57 in Blood Pressure Diastolic 60 mm Hg Blood Pressure Systolic 126 mm Hg Weight 163.6 lbs Results No Known Results Summary Purpose [employer] Submission
--- OUTSIDE RECORDS SUMMARY | 2019-04-22 07:32 | XMS REPORT | Clinical Summary ---
Author Author [facility] Organization [facility] Address Unknown Phone Unavailable Care Team Providers Care [employer] Psychologist Name Role Phone Haritha Newton MD PCP Allergies Comments Active Allergy Reactions Severity Noted Date Aspirin Shortness Of High 02/07/2017 Breath, Rash Rash starts on thighs and back Cefepime Rash Low 01/15/2019 Cephalosporins Rash Low 01/15/2019 Clindamycin Rash Low 02/07/2017 Penicillins Rash Low 02/07/2017 Sulfa (Sulfonamide Rash Low 02/07/2017 Antibiotics) Vancomycin Rash Low 02/07/2017 Medications End Date Status Medication Sig Dispensed Refills Start Date Active furosemide (LASIX) 40 mg Take 80 mg by 0 tablet mouth every morning. Active carBAMazepine (TEGretol) Take 200 mg 0 200 mg tablet by mouth daily. 200 mg 1 tablet daily Active cholecalciferol, vitamin Take 5,000 0 D3, (VITAMIN D3) 5,000 Units by unit tablet mouth daily. Active gabapentin (NEURONTIN) Take 400 mg 0 600 mg tablet by mouth 3 (three) times a day. 400 mg 2 tablets 3 times a day Active magnesium oxide 84.5 mg Take 2 0 (140 mg) capsule capsules by mouth daily. Active coenzyme Q10 100 mg Take 100 mg 0 capsule by mouth daily. Active diphenhydrAMINE Take 12.5 mg 0 (BENADRYL) 12.5 mg/5 mL by mouth liquid nightly as needed for sleep. Active citalopram (CeleXA) 40 MG Take 40 mg by 0 tablet mouth daily. 9 40 mg 1 tablet daily Active potassium chloride Take 10 mEq 0 (K-DUR,KLOR-CON) 10 MEQ by mouth 9 CR tablet daily. 20 meq ER 1 tablet daily Active ergocalciferol (VITAMIN Take 50,000 0 D2) 50,000 unit capsule Units by mouth once a week. Active etodolac (LODINE) 400 MG TK 1 T PO BID 3 tablet WF PRN 9 Active rOPINIRole (REQUIP) 2 MG ropinirole 2 0 tablet mg tablet 03/05/2019 Discontinued traMADol (ULTRAM) 50 mg Take 50 mg by 0 tablet mouth every 6 (six) hours as needed for moderate pain. 03/05/2019 Discontinued baclofen (LIORESAL) 10 MG Take 10 mg by 0 tablet mouth every evening. 03/05/2019 Discontinued busPIRone (BUSPAR) 10 MG Take 10 mg by 0 tablet mouth 2 (two) times a day. 03/05/2019 Discontinued LORAZepam (ATIVAN) 0.5 MG Take 0.5 mg 0 tablet by mouth every 6 (six) hours as needed for anxiety. 01/20/2019 Discontinued rOPINIRole (REQUIP) 2 MG Take 2 mg by 0 tablet mouth 4 9 (four) times a day. 2 mg 1 tablet 4 times a daily 03/05/2019 Discontinued HYDROcodone-acetaminophen Take 1 tablet 0 (NORCO) 10-325 mg per by mouth tablet nightly. 03/05/2019 Discontinued HYDROcodone-acetaminophen Take 1 tablet 0 (NORCO) 10-325 mg per by mouth tablet daily as needed for moderate pain. 03/05/2019 Discontinued pantoprazole (PROTONIX) Take 40 mg by 0 40 MG EC tablet mouth nightly. 01/20/2019 Discontinued fluticasone-salmeterol Inhale 2 0 (ADVAIR) 500-50 mcg/dose puffs as DISKUS needed (shortness of breath). 03/05/2019 Discontinued UNABLE TO FIND Take 1 tablet 0 by mouth daily. Procera AVH 03/05/2019 Discontinued melatonin 5 mg tablet Take 5 mg by 0 mouth nightly 9 as needed (insomnia). 03/05/2019 Discontinued ASCORBATE CALCIUM Take 1 tablet 0 (VITAMIN C ORAL) by mouth daily. 01/20/2019 Discontinued etodolac (LODINE) 300 MG Take 400 mg 0 capsule by mouth 2 (two) times a day. 40 mg 1 tablet twice daily 03/05/2019 Discontinued BUMETanide (BUMEX) 1 MG Take 1 mg by 0 tablet mouth daily. 9 02/19/2019 midodrine (PROAMATINE) 5 Take 1 tablet 60 tablet 0 MG tablet (5 mg total) 9 by mouth 2 (two) times a day for 30 days. 01/23/2019 linezolid (ZYVOX) 600 mg Take 1 tablet 6 tablet 0 tablet (600 mg 9 total) by mouth 2 (two) times a day for 3 days. 02/19/2019 rOPINIRole (REQUIP) 2 MG Take 1 tablet 90 tablet 0 tablet (2 mg total) 9 by mouth 3 (three) times a day for 30 days. 2 mg 1 tablet 4 times a daily 02/19/2019 fluticasone-salmeterol Inhale 1 puff 1 each 0 (ADVAIR) 500-50 mcg/dose as needed 9 DISKUS (shortness of breath) for up to 30 days. Active Problems Problem Noted Date Cellulitis of left leg 01/16/2019 Cellulitis and abscess of lower extremity 01/15/2019 Closed fracture of base of neck of femur 02/08/2017 Closed fracture of neck of left femur 02/07/2017 Encounters Care Team Description Date Type Specialty Beatrice Muniz MA Swelling of lower leg (Primary Dx); Chronic venous hypertension (idiopathic) with ulcer of right lower extremity (CODE) (HCC) 04/16/2019 Orders Only Cardiovascular Haritha Newton MD Shortness of breath (Primary Dx); Pain in thoracic spine 04/09/2019 Transcribe Access Orders Haritha Newton MD Asymptomatic menopausal state (Primary Dx) 03/31/2019 Transcribe Access Orders Beatrice Muniz MA 03/06/2019 Telephone Cardiovascular Mannie Hudson MD 03/05/2019 Office Visit Cardiovascular Jelly Snyder MD 03/05/2019 Documentation Cardiovascular Latrell Barbosa MD Chronic congestive splenomegaly (Primary Dx) 03/03/2019 Transcribe Access Orders Latrell Barbosa MD Lipoma of right thigh (Primary Dx); Chronic congestive splenomegaly 02/26/2019 Transcribe Access Orders Latrell Barbosa MD Cyst of buttocks (Primary Dx); Cellulitis of right buttock; Abnormal finding on ultrasound 02/24/2019 Transcribe Access Orders Latrell Barbosa MD Abdominal hernia without obstruction and without gangrene, recurrence not specified, unspecified hernia type (Primary Dx) 02/07/2019 Transcribe Orders Latrell Barbosa MD Cellulitis of skin with lymphangitis (Primary Dx); Cellulitis of skin 01/31/2019 Transcribe Access Orders Myrna Saldivar RN 01/23/2019 Telephone Cardiovascular Ines Bowers RN 01/20/2019 Patient Quality Outreach Latrell Barbosa MD Cellulitis and abscess of lower extremity (Primary Dx); Cellulitis of left leg 01/15/2019 [facility] General Surgery - Encounter 01/20/2019 Haritha Newton MD Ventral hernia without obstruction or gangrene (Primary Dx) 01/08/2019 Transcribe Access Orders Haritha Newton MD Ventral hernia without obstruction or gangrene (Primary Dx) 01/02/2019 Transcribe Access Orders after 04/21/2018 Immunizations Name Dates Previously Given Next Due Tdap 02/07/2017 Family History Medical History Relation Name Comments Circulation Problems with Father Legs Heart disease Father Aneurysm Mother Varicose Veins Mother Relation Name Status Comments Father Mother Social History Date Tobacco Use Types Packs/Day Years Used Quit: 2014 Former Smoker Smokeless Tobacco: Never Used Alcohol Use Drinks/Week oz/Week Comments No Sex Assigned at Date Recorded Female 03/07/2019 10:44 AM CDT Industry Job Start Date Occupation Not on file Not on file Not on file Travel End Travel History Travel Start No recent travel history available. Last Filed Vital Signs Time Taken Vital Sign Reading 03/05/2019 10:39 AM CDT Blood Pressure 139/90 03/05/2019 10:39 AM CDT Pulse 67 01/20/2019 11:06 AM CDT Temperature 36.2 C (97.1 F) 03/05/2019 10:39 AM CDT Respiratory Rate 12 03/05/2019 10:39 AM CDT Oxygen Saturation 98% - Inhaled Oxygen - Concentration 03/06/2019 5:00 PM CDT Weight 77.1 kg (170 lb) 03/06/2019 5:00 PM CDT Height 144.8 cm (4' 9") 03/06/2019 5:00 PM CDT Body Mass Index 36.79 Plan of Treatment Care Team Description Date Type Specialty Mannie Hudson MD [address] [facility], [address] [place], [place] [address] 04/29/2019 Office Visit Wound Care Bala Pitt MD [address] [facility] [facility] [address] [place] [address] [phone] Hal French MD [address] [facility] [address] [place] [address] [phone] 04/29/2019 Office Visit Gastroenterology Mannie Hudson MD [address] [facility], [address] [place] [address] [phone] 05/06/2019 Appointment Procedural Cardiology Health Maintenance Due Date Last Done Comments BREAST CANCER SCREENING 1997 COLONOSCOPY SCREENING 1997 SHINGLES VACCINES (#1) 1997 65+ PNEUMOCOCCAL VACCINE 2012 (1 of 2 - PCV13) INFLUENZA VACCINE 06/12/2019 Procedures Comments Procedure Name Priority Date/Time Associated Diagnosis BONE DENSITY Routine 04/09/2019 Asymptomatic menopausal 1:45 PM CDT state XR THORACIC SPINE 2 VW Routine 04/09/2019 Pain in thoracic spine 12:50 PM CDT XR CHEST 2 VW Routine 04/09/2019 Shortness of breath 12:49 PM CDT US HEPATIC Routine 03/28/2019 Chronic congestive 9:[address] LOWER EXTREMITY WO Routine 03/07/2019 Lipoma of right thigh CONTRAST RIGHT 1:42 PM CDT Chronic congestive splenomegaly US LIMITED Routine 02/07/2019 Cellulitis of skin 3:57 PM CDT ESTIMATED GFR Routine 01/19/2019 12:44 PM CDT MAGNESIUM LEVEL Routine 01/19/2019 12:44 PM CDT HC COMPLETE BLD COUNT Routine 01/19/2019 W/AUTO DIFF 12:44 PM CDT BASIC METABOLIC PANEL Routine 01/19/2019 12:44 PM CDT B NATRIURETIC PEPTIDE Routine 01/19/2019 12:44 PM CDT GRAM STAIN Routine 01/16/2019 10:34 PM [employer] OPERATOR URINE CULTURE Routine 01/16/2019 10:34 PM [employer] OPERATOR URINALYSIS SCREEN AND Routine 01/16/2019 MICROSCOPY, WITH REFLEX 10:18 PM [employer] OPERATOR TO CULTURE LACTIC ACID LEVEL Routine 01/16/2019 8:33 PM [employer] OPERATOR ECHOCARDIOGRAM 2D Routine 01/16/2019 COMPLETE W MMODE SPECTRAL 3:54 PM [employer] OPERATOR COLOR DOPPLER ([id number]) B NATRIURETIC PEPTIDE Routine 01/16/2019 3:46 PM [employer] OPERATOR B NATRIURETIC PEPTIDE Routine 01/15/2019 10:14 PM [employer] OPERATOR ESTIMATED GFR Routine 01/15/2019 10:14 PM [employer] OPERATOR PARTIAL THROMBOPLASTIN Routine 01/15/2019 TIME (PTT) 10:14 PM [employer] OPERATOR PROTHROMBIN TIME WITH INR Routine 01/15/2019 10:14 PM T[employer]ING [employer] OPERATOR BASIC METABOLIC PANEL Routine 01/15/2019 10:14 PM [employer] OPERATOR HC COMPLETE BLD COUNT Routine 01/15/2019 W/AUTO DIFF 10:14 PM T[employer] OPERATOR BLOOD CULTURE, AEROBIC & Routine 01/15/2019 ANAEROBIC 9:14 PM [employer] OPERATOR BLOOD CULTURE, AEROBIC & Routine 01/15/2019 ANAEROBIC 9:14 [address] [address] ABDOMEN PELVIS WO Routine 01/08/2019 Ventral hernia without CONTRAST 9:25 AM T[employer] OPERATOR obstruction or gangrene after 04/21/2018 Results * Bone Density (04/09/2019 1:45 PM CDT) Specimen Narrative Performed At EXAMINATION:BONE DENSITY HM [facility] CLINICAL HISTORY:Z78.0 Asymptomatic menopausal state, Z78.0 ASYMPTOMATIC POSTMENOPAUSAL.Osteoporosis screening. COMPARISON:None. The results of this study expressed as bone mineral density (BMD) were as follows: AP spine (L1- L4) BMD: 0.876g/cm2 T-Score: -2.6 Percent Change:not applicable Right Femur (Total Mean): BMD: 0.643g/cm2 T-Score: -2.9 Percent Change:not applicable Impression: Osteoporosis lumbar spine and right femur [id number] A copy of this scans including a report detailing these results will follow. Note: The world health organization (WHO) has classified the patient's T-score as follows: At or above (-1) as normal Between (-1) to (-2.5) as low (osteopenia) Below (-2.5) as abnormally low (osteoporosis, increased fracture risk) Dual femur FRAX: Risk factors: History of fracture adult 10 year probability of fracture: 1.Major osteoporotic: 29.7 % 2.Hip:10.7 % 3.Based on dual femur rightneck BMD Procedure Note Interface, Radiology Results Incoming - 04/09/2019 2:06 PM CDT EXAMINATION: BONE DENSITY CLINICAL HISTORY: Z78.0 Asymptomatic menopausal state, Z78.0 ASYMPTOMATIC POSTMENOPAUSAL. Osteoporosis screening. COMPARISON: None. The results of this study expressed as bone mineral density (BMD) were as follows: AP spine (L1- L4) BMD: 0.876 g/cm2 T-Score: -2.6 Percent Change: not applicable Right Femur (Total Mean): BMD: 0.643 g/cm2 T-Score: -2.9 Percent Change: not applicable Impression: Osteoporosis lumbar spine and right femur [id number] A copy of this scans including a report detailing these results will follow. Note: The world health organization (WHO) has classified the patient's T-score as follows: At or above (-1) as normal Between (-1) to (-2.5) as low (osteopenia) Below (-2.5) as abnormally low (osteoporosis, increased fracture risk) Dual femur FRAX: Risk factors: History of fracture adult 10 year probability of fracture: 1. Major osteoporotic: 29.7 % 2. Hip:10.7 % 3. Based on dual femur right neck BMD Performing Organization Address [facility] Phone Number [facility] [address] [place] [address] * XR Thoracic Spine 2 Vw (04/09/2019 12:50 PM CDT) Specimen Narrative Performed At EXAMINATION: XR THORACIC SPINE 2 VW RAD[facility] CLINICAL HISTORY: M54.6 Pain in thoracic spine, m54.6 COMPARISON:None IMPRESSION: Status post multiple levels of cement augmentation of the midthoracic spine with increased focal kyphosis at these levels. Decreased bone mineral density limits evaluation for new displaced fracture superior to this region. There is mild levoscoliosis of the thoracic spine. If there is high clinical concern for new fracture, CT or MRI could be performed for further assessment. ACDF of the lower cervical spine is been performed. [id number] Procedure Note Interface, Radiology Results Incoming - 04/09/2019 4:10 PM CDT EXAMINATION: XR THORACIC SPINE 2 VW CLINICAL HISTORY: M54.6 Pain in thoracic spine, m54.6 COMPARISON: None IMPRESSION: Status post multiple levels of cement augmentation of the midthoracic spine with increased focal kyphosis at these levels. Decreased bone mineral density limits evaluation for new displaced fracture superior to this region. There is mild levoscoliosis of the thoracic spine. If there is high clinical concern for new fracture, CT or MRI could be performed for further assessment. ACDF of the lower cervical spine is been performed. [id number] Performing Organization Address [facility] Phone Number [facility] [address] [place] [address] * XR Chest 2 Vw (04/09/2019 12:49 PM CDT) Specimen Narrative Performed At EXAMINATION:XR CHEST 2 VW RAD[facility] CLINICAL HISTORY:R06.02 Shortness of breath, r06.02 COMPARISON:February 11, 2017 IMPRESSION: Lines: None Lungs and pleura: No consolidations. No pleural effusion or pneumothorax. Heart and mediastinum: Stable appearance of cardiomediastinal silhouette. Bones: No suspicious osseous lesions. Compression fractures and vertebral augmentation changes of multiple thoracic vertebral bodies. ACDF. Left rotator cuff calcific tendinitis. Exaggerated kyphosis. Bones are severely demineralized. [id number] Procedure Note Interface, Radiology Results Incoming - 04/09/2019 1:36 PM CDT EXAMINATION: XR CHEST 2 VW CLINICAL HISTORY: R06.02 Shortness of breath, r06.02 COMPARISON: February 11, 2017 IMPRESSION: Lines: None Lungs and pleura: No consolidations. No pleural effusion or pneumothorax. Heart and mediastinum: Stable appearance of cardiomediastinal silhouette. Bones: No suspicious osseous lesions. Compression fractures and vertebral augmentation changes of multiple thoracic vertebral bodies. ACDF. Left rotator cuff calcific tendinitis. Exaggerated kyphosis. Bones are severely demineralized. [id number] Performing Organization Address [facility] Phone Number [facility] [address] [place] [address] * US Hepatic (03/28/2019 9:03 AM CDT) Specimen Narrative Performed At EXAMINATION:US HEPATIC RADI[facility] CLINICAL HISTORY:D73.2 Chronic congestive splenomegaly, d73.2 d17.23 COMPARISON:None. IMPRESSION: The liver is normal in appearance. Patient is status post cholecystectomy. Common bile duct is dilated to 1.7 cm. This is greater than that expected for postcholecystectomy status. MRCP could better evaluate if desired. Main portal vein is 11 mm. Flow in the main portal vein is patent and hepatopedal. [id number] Procedure Note Interface, Radiology Results Incoming - 03/28/2019 9:12 AM CDT EXAMINATION: US HEPATIC CLINICAL HISTORY: D73.2 Chronic congestive splenomegaly, d73.2 d17.23 COMPARISON: None. IMPRESSION: The liver is normal in appearance. Patient is status post cholecystectomy. Common bile duct is dilated to 1.7 cm. This is greater than that expected for postcholecystectomy status. MRCP could better evaluate if desired. Main portal vein is 11 mm. Flow in the main portal vein is patent and hepatopedal. [id number] Performing Organization Address [facility] Phone Number [facility] [address] [place] [address] * CT Lower Extremity Wo Contrast Right (03/07/2019 1:42 PM CDT) Specimen Narrative Performed At EXAMINATION:CT LOWER EXTREMITY WO CONTRAST RIGHT [facility] CLINICAL HISTORY:D17.23 Benign lipomatous neoplasm of skin and subcutaneous tissue of right leg, D73.2 Chronic congestive splenomegaly, CHRONIC CONGESTIVE SPLENOMAGALY TECHNIQUE: Multiple axial images of the right lower extremity were obtained without contrast. CT imaging was performed with iterative reconstruction technique and/or automated exposure control to reduce radiation dose. COMPARISON:01/08/2019 FINDINGS: No acute fracture or dislocation. Mild degenerative changes of the right hip joint characterized by joint space narrowing and minimal subchondral sclerosis. Facet arthropathy lower lumbar spine. Mild degenerative changes of the right SI joint. Numerous soft tissue calcifications are present, could reflect injection granulomas. Fat-containing ventral hernia. Numerous prominent right inguinal nodes are present measuring up to 1.3 cm, unchanged since prior exam. Vascular calcifications. There is mild skin thickening and subcutaneous stranding of the right proximal thigh. Similar edema is also seen in the lower abdominal wall. IMPRESSION: 1.No acute abnormalities. 2.Mild skin thickening and subcutaneous cutaneous stranding of the right proximal thigh, the lower abdominal wall likely chronic. Please correlate for cellulitis. [id number] Procedure Note Interface, Radiology Results Incoming - 03/07/2019 2:20 PM CDT EXAMINATION: CT LOWER EXTREMITY WO CONTRAST RIGHT CLINICAL HISTORY: D17.23 Benign lipomatous neoplasm of skin and subcutaneous tissue of right leg, D73.2 Chronic congestive splenomegaly, CHRONIC CONGESTIVE SPLENOMAGALY TECHNIQUE: Multiple axial images of the right lower extremity were obtained without contrast. CT imaging was performed with iterative reconstruction technique and/or automated exposure control to reduce radiation dose. COMPARISON: 01/08/2019 FINDINGS: No acute fracture or dislocation. Mild degenerative changes of the right hip joint characterized by joint space narrowing and minimal subchondral sclerosis. Facet arthropathy lower lumbar spine. Mild degenerative changes of the right SI joint. Numerous soft tissue calcifications are present, could reflect injection granulomas. Fat-containing ventral hernia. Numerous prominent right inguinal nodes are present measuring up to 1.3 cm, unchanged since prior exam. Vascular calcifications. There is mild skin thickening and subcutaneous stranding of the right proximal thigh. Similar edema is also seen in the lower abdominal wall. IMPRESSION: 1. No acute abnormalities. 2. Mild skin thickening and subcutaneous cutaneous stranding of the right proximal thigh, the lower abdominal wall likely chronic. Please correlate for cellulitis. [id number] Performing Organization Address City/State/Zipcode Phone Number [facility] [address] [place] [address] * US Limited (02/07/2019 3:57 PM CDT) Specimen Narrative Performed At EXAMINATION:US LIMITED RAD[facility]NER CLINICAL HISTORY:L03.90 Cellulitisunspecified, CELLULITIS BUTTOCK RT COMPARISON:To a CT examination from 01/08/2019. FINDINGS: In the right buttock, there is a 3.5 x 3.6 x 2.5 cm ill-defined solid and cystic mass, most consistent with a fragment with a small areas of necrosis. A drainable abscess is not identified. IMPRESSION: Further evaluation with CT or MR scanning could be of benefit. [id number] Procedure Note Hm Interface, Radiology Results Incoming - 02/07/2019 7:27 PM CDT EXAMINATION: US LIMITED CLINICAL HISTORY: L03.90 Cellulitis unspecified, CELLULITIS BUTTOCK RT COMPARISON: To a CT examination from 01/08/2019. FINDINGS: In the right buttock, there is a 3.5 x 3.6 x 2.5 cm ill-defined solid and cystic mass, most consistent with a fragment with a small areas of necrosis. A drainable abscess is not identified. IMPRESSION: Further evaluation with CT or MR scanning could be of benefit. [id number] Performing Organization Address [facility] Phone Number [facility] [address] [place] [address] * Estimated GFR (01/19/2019 12:44 PM CDT) Only the most recent of 2 results within the time period is included. Estimated GFR 87 mL/min/1.73 m2 [place] Comment: [employer] [facility] G1 >=90 Normal or high G2 60-89Mildly decreased D6h20-21 Mildly to moderately decreased Q6r74-27 Moderately to severely decreased G4 15-29Severely decreased G5 <15Kidney failure The eGFR was calculated using the Chronic Kidney Disease Epidemiology Collaboration (CKD-EPI) equation. Interpretation is based on recommendations of the National Kidney Foundation-Kidney Disease Outcomes Quality Initiative (NKF-KDOQI) published in 2014. Specimen Plasma specimen Performing Organization Address City/State/Zipcode Phone Number [place] [address] [place] [address] PATHOLOGY AND GENOMIC MEDICINE [place] [address] [address] * CBC with platelet and differential (01/19/2019 12:44 PM CDT) Only the most recent of 2 results within the time period is included. WBC 5.6 4.2 - 11.0 k/uL [facility] RBC 3.53 (L) 4.04 - 5.86 m/uL [facility] HGB 10.4 (L) 11.5 - 15.3 g/dL [facility] HCT 33.4 (L) 34.0 - 45.0 % [facility] MCV 94.6 80.0 - 98.0 fL [facility] MCH 29.5 27.0 - 34.0 pg [facility] MCHC 31.1 (L) 31.5 - 36.5 g/dL [facility] RDW - SD 50.1 37.0 - 51.0 fL [facility] MPV 10.5 (H) 7.4 - 10.4 fL [facility] Platelet count 171 150 - 400 k/uL [facility] Nucleated RBC 0.00 /100 WBC [facility] Neutrophils 63.0 36.0 - 66.0 % [facility] Lymphocytes 15.4 (L) 24.0 - 44.0 % [facility] Monocytes 10.7 (H) 0.0 - 6.0 % [facility] Eosinophils 9.8 (H) 0.0 - 6.0 % [facility] Basophils 0.4 0.0 - 1.2 % [facility] Immature 0.7 0.0 - 1.0 % [place] granulocytes [facility] [place] [place] Specimen Blood Performing Organization Address City/State/Zipcode Phone Number [facility] [address] [place] [phone] PATHOLOGY AND GENOMIC MEDICINE [place] [address] [address] * B natriuretic peptide (01/19/2019 12:44 PM CDT) Only the most recent of 3 results within the time period is included. BNP 243 (H) 0 - 100 pg/mL [facility] Specimen Blood Performing Organization Address City/[facility] Phone Number [facility] [place] [address] PATHOLOGY AND GENOMIC MEDICINE [address] * Magnesium level (01/19/2019 12:44 PM CDT) Pathologist [facility] Magnesium 2.00 1.60 - 2.40 mg/dL [facility] Specimen Plasma specimen Performing Organization Address [facility] [place] [address] PATH[address] * Basic metabolic panel (01/19/2019 12:44 PM CDT) Only the most recent of 2 results within the time period is included. Pathologist [facility] Sodium 140 135 - 150 mEq/L [facility] Potassium 4.5 3.5 - 5.0 mEq/L [facility] Chloride 106 98 - 112 mEq/L [facility] CO2 26 24 - 31 mmol/L [facility] Anion gap 8@ANIO 7 - 15 mEq/L [facility] BUN 15 7 - 18 mg/dL [facility] Creatinine 0.70 0.50 - 0.90 mg/dL [facility] Glucose 102 (H) 65 - 100 mg/dL [facility] Calcium 8.6 (L) 8.8 - 10.2 mg/dL [facility] Specimen Plasma specimen Performing Organization Address [facility] Phone Number [facility] [facility] [place] [address] PATHOLOGY AND GENOMIC MEDICINE [address] * Gram stain (01/16/2019 10:34 PM TUBING MILL OPERATOR) Gram stain Rare WBC's [facility] result No organisms seen SCIENTOLOGY Comment: HOSPITAL Specimen Information Specimen Source: Urine Specimen Site: Clean catch Specimen Urine Performing Organization Address City/[facility]/Zipcode Phone Number [facility] DEPARTMENT OF [address] [place] [id number] PATHOLOGY AND GENOMIC MEDICINE [address] * Urine culture (01/16/2019 10:34 PM TUBING MILL OPERATOR) Urine culture No growth after 24 hours [place] isolate Comment: SCIENTOLOGY Specimen Information HOSPITAL Specimen Source: Urine Specimen Site: Clean catch Specimen Urine Performing Organization Address City/[facility]/Zipcode Phone Number [facility] DEPARTMENT OF [address] [place] [address] PATHOLOGY AND GENOMIC MEDICINE [address] * Urinalysis screen and microscopy, with reflex to culture (01/16/2019 10:18 PM TUBING MILL OPERATOR) Specimen site Clean catch [facility] Color, UA Straw [facility] Appearance, UA Clear [facility] Specific 1.016 1.001 - 1.035 [place] gravity, [facility] pH, UA 6.0 5.0 - 8.5 [facility] Protein, UA Negative Negative [facility] Glucose, UA Negative Negative [facility] Ketones, UA Negative Negative [facility] Bilirubin, UA Negative Negative [facility] Blood, UA Negative Negative [facility] Nitrite, UA Negative Negative [facility] Urobilinogen, Negative <2.0 [facility] Leukocyte Moderate (A) Negative [facility] esterase, [facility] WBC, UA 10 (A) 0 - 5 /HPF [facility] RBC, UA 3 0 - 5 /HPF [facility] Bacteria, UA None seen None seen [facility] Yeast, UA None seen [facility] Yeast with None seen [facility] Spec[facility] Urine Performing Organization Address City/[facility]/Zipcode Phone Number [facility] DEPARTMENT OF [address] [place] [address] PATHOLOGY AND GENOMIC MEDICINE [facility] [address] * Lactic acid level (01/16/2019 8:33 PM TUBING MILL OPERATOR) Lactic acid 1.0 0.5 - 2.2 mmol/L [facility] Specimen Blood Performing Organization Address City/[facility] Phone Number [facility] DEPARTMENT OF [address] [place] [phone] PATHOLOGY AND GENOMIC MEDICINE [facility] [address] * Echocardiogram complete w contrast and 3D if needed (01/16/2019 3:54 PM TUBING MILL OPERATOR) Velocity Ratio 0.56 m/s [facility] (V1/V2) IVS,d 0.95 cm [facility] EF 58.52 % [facility] Ascending aorta 2.95 cm [facility] LVPWD,d 0.91 cm HM [facility] AoV Mean PG 6.76 mmHg [facility] AV LVOT peak 4.98 mmHg [facility] gradient MV valve area p 3.21 cm2 [facility] 1/2 method PV Pk Grad 4.28 mmHg [facility] E/A ratio 1.16 [facility] E wave 245.70 msec [facility] decelartion time LVOT Diam,S 1.94 cm [facility] LVOT area 2.95 cm2 [facility] LVOT Vmax 1.12 m/s [facility] LVOT VTI 0.25 m HM [facility] AoV Peak PG 16.11 mmHg [facility] MV Peak E Miguel 1.01 m/s [facility] MV stenosis 68.49 ms [facility] pressure 1/2 time MV Peak A Miguel 0.87 m/s [facility] BSA 1.69 m2 [facility] Ao Root 3.10 cm [facility] Diameter AoV Area, Vmax 1.65 cm2 [facility] AoV Area, VTI 1.89 cm2 [facility] AoV Vmax 2.01 m/s [facility] BSA Amato 1.83 m2 [facility] BSA Haycock 1.79 m2 [facility] IVS/LVPW,2D 1.04 [facility] Left Atrium 4.40 cm [facility] Dimension Anterior LV,d 5.06 cm [facility] LV,s 3.49 cm [facility] PV VMAX 1.03 m/s [facility] RVSP (TR) 45.14 mmHg [facility] TR Vpeak 3.16 mm/s [facility] BMI 33.12 kg/m2 [facility] MV E A ratio 1.14 [facility] TR pk grad 38.29 mmHg [facility] AoV area i VTI 1.12 cm2/m2 [facility] BSA [place] RVSP 45.14 mmHg [facility] Ao Root 3.10 cm [facility] Diameter LV SYS VOL 50.43 ml [facility] LV LATHAM VOL 121.57 ml [facility] LV SI Teich 2D 41.98 ml/m2 [facility] LV SV Teich 2D 71.15 ml [facility] LV Vol s Teich 50.43 ml [facility] PSAX LVOT CI 2.96 l/min/m2 [facility] LVOT CO 5.02 l/min [facility] LVOT HR for 67.16 bpm [facility] LVOT CO LVOT SI 44.13 ml/m2 [facility] AoV Vmn 1.21 [facility] IVS s 2D 1.53 [facility] LV FS Cube 2D 31.08 [facility] LV FS Teich 2D 31.08 [facility] AoV VTI 0.40 m [facility] LV EF,2D 67.27 % [facility] MV AE ratio 0.88 [facility] LVOT Vmn 0.77 [facility] Pt Size 149.86 [facility] Pt Wt 74.39 [facility] Aov area Vmn 1.89 cm2 [facility] LA A_P score P 3.68 [facility] LVOT mean grad 2.59 mmHg [facility] MAX Pred HR 148.68 [facility] 85 of MPHR 126.38 [facility] AoV area I VMN 1.12 cm2/m2 [facility] bsa Calc MPHR 148.68 bpm [facility] IVS pct thck 61.03 % [facility] PLAX LV SI Cube 2D 51.42 ml/m2 [facility] LV SV Cube 2D 87.15 ml [facility] LV vol d cube 129.57 ml [facility] 2D LV vol s cube 42.41 ml [facility] 2D LVPW pct thck 67.17 % [facility] PLAX LVPW s PLAX 1.52 cm [facility] MV Decel slope 4.12 m/s2 [facility] Pred Exer Dur 6.68 [facility] R1 Pred METS R1 5.43 [facility] Specimen Narrative Performed At [facility] There is mild left ventricular concentric hypertrophy. Left Ventricular ejection fraction is 50 - 55%. Spectral Doppler shows impaired relaxation pattern of left ventricular diastolic filling. Left atrium size is mildly dilated. Performing Organization Address City/State/Zipcode Phone Number [facility] [address] [place] [address] * Partial thromboplastin time, activated (01/15/2019 10:14 PM TUBING MILL OPERATOR) PTT 30.7 23.0 - 36.0 sec [facility] Comment: JAMIE MART PTT therapeutic range for MURALI unfractionated heparin is HOSPITAL 61.0-112.0 seconds which corresponds to Anti-Xa 0.3-0.7 U/ml. Note:Change in Panic Value The PTT Panic Value is changing from 110 sec. to 100 sec. due to new instrumentation and reagents. Correlation studies have been performed to validate this result. Specimen Blood Performing Organization Address [facility] Hospitalcode Phone Number [facility] DEPARTMENT OF [facility] [place] [address] [place] [address] PATHOLOGY AND [facility] MEDICINE [place] [address] * Prothrombin time with INR (01/15/2019 10:14 PM TUBING MILL OPERATOR) Prothrombin 13.3 11.5 - 14.5 sec [facility] [address] [facility] [place] INR 1.04 [place] Comment: JAMIE MART For patients on anticoagulant MURALI therapy, reference ranges HOSPITAL below: Indication: INR Value Treatment of Venous Thrombosis, 2.0-3.0 pulmonary emboli, or prophylaxis of a venous thrombosis, or systemic emboli. High dose, high risk patients 3.0-4.5 with mechanical valves. NOTE:INR values over 3.0 are sometimes associated with gastrointestinal hemorrhage, especially values over 4.0. Specimen Blood Performing Organization Address City/[facility]/Zipcode Phone Number [facility] DEPARTMENT OF [address] [place] [phone] PATHOLOGY AND GENOMIC MEDICINE [place] SCIENTOLOG[facility] [place] [address] [place] [address] [facility] * Blood culture, aerobic & anaerobic (01/15/2019 9:14 PM TUBING MILL OPERATOR) Only the most recent of 2 results within the time period is included. Blood culture No growth after 5 days of [facility] isolate incubation. SCIENTOLOGY Comment: HOSPITAL Specimen Information Specimen Source: Blood Specimen Site: RIGHT HAND Specimen Blood Performing Organization Address City/State/Zipcode Phone Number [facility] DEPARTMENT OF [address] [place] [address] PATHOLOGY AND GENOMIC MEDICINE [facility] SCIENTOLOGY [address] [place] [address] HOSPITAL * CT Abdomen Pelvis Wo Contrast (01/08/2019 9:25 AM TUBING MILL OPERATOR) Specimen Narrative Performed At EXAMINATION:CT ABDOMEN PELVIS WO CONTRAST RADIANT CLINICAL HISTORY:K43.9 Ventral hernia without obstruction or gangrene, VENTRAL HERNIA WITHOUT OBSTRUCTION OR GANGRENE TECHNIQUE: Multiple axial images of the abdomen and pelvis were obtained without intravenous administration of iodinated contrast. Sagittal and coronal computerized reformatted images were also obtained. The lack of intravenous contrast reduces the sensitivity of detecting solid organ disease.CT imaging was performed with iterative reconstruction technique and/or automated exposure control to reduce radiation dose. COMPARISON:02/07/2017 IMPRESSION: Abdomen: Heart size is within normal limits. There is coronary artery calcification. Lung bases are unremarkable. The liver,pancreas, and adrenal glands are normal in appearance. Surgical clips are seen in the gallbladder fossa. There is splenomegaly. The spleen is 14 cm in length. There is small hiatal hernia. Unopacified images of the kidneys are unremarkable. Small to moderate umbilical hernia containing fat only is seen. Pelvis: Subcutaneous edema is seen. No enlarged pelvic lymph node or mass is seen. Umbilical hernia containing fat only is identified. 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 Degenerative changes of spine are present. Distal scoliosis is again seen. [id number] Procedure Note Interface, Radiology Results Incoming - 01/08/2019 9:32 AM TUBING MILL OPERATOR EXAMINATION: CT ABDOMEN PELVIS WO CONTRAST CLINICAL HISTORY: K43.9 Ventral hernia without obstruction or gangrene, VENTRAL HERNIA WITHOUT OBSTRUCTION OR GANGRENE TECHNIQUE: Multiple axial images of the abdomen and pelvis were obtained without intravenous administration of iodinated contrast. Sagittal and coronal computerized reformatted images were also obtained. The lack of intravenous contrast reduces the sensitivity of detecting solid organ disease.CT imaging was performed with iterative reconstruction technique and/or automated exposure control to reduce radiation dose. COMPARISON: 02/07/2017 IMPRESSION: Abdomen: Heart size is within normal limits. There is coronary artery calcification. Lung bases are unremarkable. The liver, pancreas, and adrenal glands are normal in appearance. Surgical clips are seen in the gallbladder fossa. There is splenomegaly. The spleen is 14 cm in length. There is small hiatal hernia. Unopacified images of the kidneys are unremarkable. Small to moderate umbilical hernia containing fat only is seen. Pelvis: Subcutaneous edema is seen. No enlarged pelvic lymph node or mass is seen. Umbilical hernia containing fat only is identified. 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 Degenerative changes of spine are present. Distal scoliosis is again seen. [id number] Performing Organization Address City/State/Zipcode Phone Number [facility] [address] [place] [address] after 04/21/2018 Insurance Type Payer Benefit Subscriber ID Effective Phone Address Plan / Dates Group Medicare MEDICARE MEDICARE xxxxxxxxxxx 2012- CALI, PART A AND Present [place] Commercial [employer] M[employer] OF xxxxxx-xx 2015- MARYBETH Present Advance Directives Patient has advance care planning documents on file. For more information, gudelia ashton contact: Cali Sorto [address] [place] [address]
--- OUTSIDE RECORDS SUMMARY | 2019-04-22 07:32 | XMS REPORT ---
Author Author Valerie Jarrell Organization [employer] Address Unknown Phone Unavailable Care Team Providers Care Marketing Specialist Name Role Phone Valerie Jarrell CP Unavailable Allergies No Known Allergies Problems Problem Type Condition Code Onset Dates Condition Status Problem Osteoporosis, senile M81.0 Active Problem Gastritis and duodenitis K29.90 Active Problem Vitamin D deficiency E55.9 Active Medications No Known Medications Results No Known Results Summary Purpose [employer]ClinicalWorks Submission
--- OUTSIDE RECORDS SUMMARY | 2019-04-22 07:32 | XMS REPORT ---
Author Author Valerie Jarrell [facility] eClinical[employer] Address Unknown Phone Unavailable Care Team Providers Care Concrete Placement Equipment Operator Name Role Phone Marisollaurel Valerie CP Unavailable [...] Instructions Start Date End Date Status Dosage Citalopram Hydrobromide ND 72636255423 20 MG Orally Once a day Active 1 tablet Potassium Chloride ND 76056216636 20 MEQ Orally Once a day Active 1 packet with food Furosemide ND 06098748672 40 MG Orally Once a day Active 1 tablet Magnesium [facility] 56278996350 300 MG Orally Once a day Active 1 capsule with a meal Etodolac [facility] 20293566066 400 MG Orally Twice a day February 27, 2019 Active 1 tab(s) with food as needed Doxycycline Hyclate ND 36370118815 100 MG Intravenous Active not defined HydrOXYzine HCl ND 76567776158 25 MG/ML Intramuscular every 6 hrs Active 2 ml as needed Ergocalciferol ND 27120329479 [address]1255 UNIT Orally once weekly February 27, 2019 Active 1 capsule Womens Multivitamin ND 54322795064 - Orally Active not defined Gabapentin ND 93687197077 400 MG Orally Three times a day Active 1 cap(s) Prolia ND 10354638847 60 MG/ML Subcutaneous once every 6 months Active as directed [place] 3 ND 34029155442 1000 MG Orally Once a day Active 1 capsule Naproxen [facility] 21242644755 500 MG Orally every 12 hrs Aug 06, 2018 Nov 04, 2018 Active 1 tab(s) with food as needed Carbamazepine ND 81122359806 100 MG Orally Twice a day Active 2 tablets Imodium A-D ND 36337890949 2 MG Orally Four times a day Active 1 tablet as needed Sucralfate [facility] 07285476934 1 GM/10ML Orally Twice a day Active 10 ml at bedtime on an empty stomach before meals Ropinirole HCl [facility] 33052953207 2 MG Orally Once a day Active 1 tablet 1 to 3 hours before bedtime Bumetanide [facility] 50838190233 1 MG Orally Active not defined Benadryl [facility] 0 Active not defined Ergocalciferol [facility] 61181142367 [address] UNIT Orally q week Jul 17, 2018 Nov 14, 2018 Active 1 capsule Vital Signs Date/Time: Oct 30, 2018 Height 57 in Blood Pressure Diastolic 54 mm Hg Blood Pressure Systolic 113 mm Hg Weight 151.8 lbs Results No Known Results Summary Purpose eClinicalWorks Submission
[2019-04-22 11:05] VITALS: BP 124/86
--- NOTE | 2019-04-22 14:00 | Operative Report ---
DATE OF PROCEDURE: 04/22/2019 SURGEON: Reginald Abreu MD DATA WAREHOUSING SPECIALIST: Shaheen Montiel PA-C. PREOPERATIVE DIAGNOSIS: Right carpal tunnel syndrome. POSTOPERATIVE DIAGNOSIS: Right carpal tunnel syndrome. PROCEDURE: Right endoscopic carpal tunnel release. INDICATIONS: The patient is a 73-year-old lady, who has clinic signs and symptoms consistent with right carpal tunnel syndrome. She has had a similar situation on the left side that responded nicely to an endoscopic carpal tunnel release. She would like to proceed with definitive intervention on the right. The risks and benefits were explained. She stated she understood and wished to proceed. PROCEDURE IN DETAIL: The patient was brought to the operating room and placed under general anesthetic. Her right upper extremity was prepped and draped in a sterile manner. A preoperative time-out was performed. The extremity was exsanguinated and a proximal tourniquet was inflated to 250 mmHg. An incision was made over the flexion crease of the right wrist. The palmaris longus was retracted to the radial side of the wound. The flexor retinaculum was elevated and incised. An elevator was used to tease the tenosynovium off the undersurface of the transverse carpal ligament. Dilators were placed and the hook of the hamate was palpated. The MicroAire endoscope was then placed into the carpal tunnel. The undersurface of the carpal tunnel was cleanly visualized without evidence of soft tissue interposition. The knife was deployed and the ligament was cut from distal to proximal. Care was taken to ensure a full-thickness cut. The proximal retinaculum was then incised under direct visualization with a pair of blunt Metzenbaum scissors. The skin was closed with two interrupted nylon stitches. A sterile bandage was applied. The tourniquet was deflated and the patient was extubated. She was transported to the recovery room in stable condition. There was no blood loss and all needle and sponge counts were correct. Reginald Abreu MD DR/DELTA /[id number]
== END | disposition home or self-care (01) ==
LOC: OR 07:26
PROVIDERS: ATTEND Specialist
DX: G56.01 Carpal tunnel syndrome, right upper limb (principal); I11.0 Hypertensive heart disease with heart failure; I50.9 Heart failure, unspecified; M19.90 Unspecified osteoarthritis, unspecified site; G89.29 Other chronic pain; J43.9 Emphysema, unspecified; G25.81 Restless legs syndrome; F32.9 Major depressive disorder, single episode, unspecified; Z88.1 Allergy status to other antibiotic agents; Z88.3 Allergy status to other anti-infective agents; Z88.2 Allergy status to sulfonamides; Z88.6 Allergy status to analgesic agent; Z88.0 Allergy status to penicillin; Z01.812 Encounter for preprocedural laboratory examination; Z87.891 Personal history of nicotine dependence
CPT/HCPCS: 29848; 36415; 80048; 85025; J1100; J1885; J1956; J2001; J2405; J2704